=== PATIENT | male | born 1995 | race Caucasian/White ===

== ENCOUNTER 2019-04-03 08:28 | Emergency (ER) | payer BC ==
[2019-04-03 08:36] VITALS: BP 153/86
--- NOTE | 2019-04-03 09:11 | EDM.PDOC ---
ED HPI GENERAL MEDICAL PROBLEM - General Chief Complaint: ENT Problem Stated Complaint: NOSE BLEED/COUGHING BLOOD Time Seen by Provider: 04/03/19 08:40 Source of Information: Reports: Patient History Limitations: Reports: No Limitations - History of Present Illness INITIAL COMMENTS - FREE TEXT/NARRATIVE: The patient presents with a nose bleed. This started this morning at work. He denies any trauma. It was coming out of both nostrils. He says he does have a history of nosebleeds. This one caused him to cough up some blood after. That has never happened before. He has a complex heart history. 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 He also has a pacemaker defibrillator. He had that replaced a few times. He is on aspirin but he has been on other blood thinners before. 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 He also had a little chest pain when the nosebleed happened. The bleeding has stopped now. Onset: Sudden Duration: Hour(s): Severity: Moderate Improves with: Reports: None Worsens with: Reports: None Associated Symptoms: Reports: Chest Pain. Denies: Cough, Fever/Chills, Headaches, Nausea/Vomiting, Shortness of Breath - Related Data Allergies Allergy/AdvReac Type Severity Reaction Status Date / Time vancomycin Allergy Redness Verified 11/29/15 12:15 acetaminophen [From Tylenol] AdvReac Other Verified 04/03/19 08:37 Home Meds: Home Meds Carvedilol 6.25 mg PO BID 12/30/13 [History] Carvedilol [Coreg] 25 mg PO BID 12/30/13 [History] Digoxin 0.125 mg PO DAILY 12/30/13 [History] Eplerenone [Inspra] 25 mg PO DAILY 12/30/13 [History] Magnesium Oxide [Magnesium] 400 mg PO BID 12/30/13 [History] Amantadine [Symmetrel] 100 mg PO DAILY 11/29/15 [History] Aspirin 81 mg PO ASDIRECTED 11/29/15 [History] Sotalol [Betapace] 80 mg PO DAILY 11/29/15 [History] Carvedilol [Coreg] 6.25 mg PO BID 04/03/19 [History] Diclofenac Sodium [Voltaren] 50 mg PO TID PRN 04/03/19 [History] Past Medical History HEENT History: Reports: Impaired Vision Other HEENT History: wears glasses Cardiovascular History: Reports: Arrhythmia, Heart Valve Replacement, Hypertension, Prior Cardiac Arrest, Other (See Below) Other Cardiovascular History: Has had 1 pacemaker change and 2 defibulator changes-. 3 open heart surgeries., 3 cardiac caths. Had a myocardial infarction at age 15. Unclear etiology although suspicious that he had a ventricular septal defect. heart is located on right side. 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 Other Immunologic History: pulmonary valve - Past Surgical History Cardiovascular Surgical History: Reports: AICD, Pacer, Valve Replacement Social & Family History - Caffeine Use Caffeine Use: Reports: Coffee, Energy Drinks, Tea - Recreational Drug Use Recreational Drug Use: No - Living Situation & Occupation Living situation: Reports: Single, with Family Occupation: Employed ED ROS ENT - Review of Systems Review Of Systems: See Below Constitutional: Reports: No Symptoms HEENT: Reports: Nosebleed Respiratory: Reports: No Symptoms Cardiovascular: Reports: Chest Pain Endocrine: Reports: No Symptoms GI/Abdominal: Reports: No Symptoms : Reports: No Symptoms Musculoskeletal: Reports: No Symptoms ED EXAM, ENT - Physical Exam Exam: See Below Exam Limited By: No Limitations General Appearance: Alert, No Apparent Distress Ears: Normal External Exam Nose: Dried Blood Mouth/Throat: Normal Inspection Head: Atraumatic, Normocephalic Neck: Normal Inspection, Supple, Non-Tender Respiratory/Chest: No Respiratory Distress, Lungs Clear, Normal Breath Sounds Cardiovascular: Regular Rate, Rhythm, No Edema, No Murmur GI/Abdominal: Soft, Non-Tender, No Organomegaly, No Mass Back: Normal Inspection Extremities: Normal Inspection EKG INTERPRETATION EKG Date: 04/03/19 Time: 09:06 Rhythm: Other (atrial-sensed ventricular-paced rhythm) Course - Vital Signs Last Recorded V/S: Last Vital Signs Temp 96.9 F 04/03/19 08:33 Pulse 66 04/03/19 08:33 Resp 15 04/03/19 08:33 BP 153/86 H 04/03/19 08:33 Pulse Ox 97 04/03/19 08:33 - Orders/Labs/Meds Orders: Active Orders 24 hr Category Date Time Status Cardiac Monitoring [RC] . DIRECTED Care 04/03/19 08:57 Active EKG Documentation Completion [RC] STAT Care 04/03/19 08:57 Active Labs: Laboratory Tests 04/03/19 04/03/19 04/03/19 Range/Units 09:13 09:13 09:13 WBC 6.50 (4.23-9.07) K/mm3 RBC 5.38 (4.63-6.08) M/mm3 Hgb 16.7 (13.7-17.5) gm/L Hct 48.1 (40.1-51.0) % MCV 89.4 (79.0-92.2) fl MCH 31.0 (25.7-32.2) pg MCHC 34.7 (32.2-35.5) g/dl RDW Std Deviation 42.5 (35.1-43.9) fL Plt Count 180 (163-337) K/mm3 MPV 10.6 (9.4-12.3) fl Neut % (Auto) 65.1 (34.0-67.9) % Lymph % (Auto) 21.4 L (21.8-53.1) % [place] % (Auto) 10.9 (5.3-12.2) % Eos % (Auto) 2.2 (0.8-7.0) Baso % (Auto) 0.2 (0.1-1.2) % Neut # (Auto) 4.24 (1.78-5.38) K/mm3 Lymph # (Auto) 1.39 (1.32-3.57) K/mm3 [place] # (Auto) 0.71 (0.30-0.82) K/mm3 Eos # (Auto) 0.14 (0.04-0.54) K/mm3 Baso # (Auto) 0.01 (0.01-0.08) K/mm3 PT 11.2 (9.7-12.0) SECONDS INR 1.03 APTT 29 (22-31) SECONDS Sodium 136 (136-145) mEq/L Potassium 4.3 (3.5-5.1) mEq/L Chloride 101 (98-107) mEq/L Carbon Dioxide 24 (21-32) mEq/L Anion Gap 15.3 H (5-15) BUN 21 H (7-18) mg/dL Creatinine 0.8 (0.7-1.3) mg/dL Est Cr Clr Drug Dosing 173.11 mL/min Estimated GFR (MDRD) > 60 (>60) mL/min BUN/Creatinine Ratio 26.3 H (14-18) Glucose 105 (74-106) mg/dL Calcium 9.0 (8.5-10.1) mg/dL Total Bilirubin 1.8 H (0.2-1.0) mg/dL AST 29 (15-37) U/L ALT 45 (16-63) U/L Alkaline Phosphatase 68 (46-116) U/L Troponin I 0.026 (0.00-0.056) ng/mL Total Protein 7.9 (6.4-8.2) g/dl Albumin 4.3 (3.4-5.0) g/dl Globulin 3.6 gm/dL Albumin/Globulin Ratio 1.2 (1-2) - Re-Assessments/Exams Free Text/Narrative Re-Assessment/Exam: 04/03/19 09:14 I ordered an EKG, CXR and labs. 04/03/19 10:53 His EKG shows a paced rhythm. His CXR shows nothing acute. His CBC and CMP look good. His tropnin PT and PTT look good. I did use silver nitrate to cauterize some bleeding to the septum of each nostril. Departure - Departure Time of Disposition: 10:55 Disposition: Home, Self-Care 01 Condition: Good Clinical Impression: Epistaxis - Discharge Information *PRESCRIPTION DRUG MONITORING PROGRAM REVIEWED*: No *COPY OF PRESCRIPTION DRUG MONITORING REPORT IN PATIENT JENNIFER: No Referrals: Mariano Oro MD [Primary Care Provider] - Forms: ED Department Discharge Additional Instructions: Put some petroleum jelly or antibiotic ointment in each nostril a couple times per day to keep things moist. Please return if you are worse. - My Orders Last 24 Hours: My Active Orders 04/03/19 08:57 Cardiac Monitoring [RC] . DIRECTED EKG Documentation Completion [RC] STAT - Assessment/Plan Last 24 Hours: My Active Orders 04/03/19 08:57 Cardiac Monitoring [RC] . DIRECTED EKG Documentation Completion [RC] STAT
--- NOTE | 2019-04-03 09:35 | CR ---
Chest: Two views of the chest are obtained. Comparison: Prior chest x-ray of 12/30/13. Stable appearing right-sided cardiac apex is noted. Left-sided aortic arch is noted. Findings are compatible with stable appearing congenital heart disease. Epicardial wires are seen. Lungs are clear with no acute parenchymal change. Sternotomy wires are noted. Bony structures appear within normal limits for the patient's age. Impression: 1. Stable chest x-ray from previous exam. 2. Nothing acute is identified. Diagnostic code #2
== END 2019-04-03 11:03 | disposition home or self-care (01) ==
LOC: JD.ED 08:28
DX: R04.0 Epistaxis (principal); I10 Essential (primary) hypertension; I25.2 Old myocardial infarction; Z95.2 Presence of prosthetic heart valve; Z88.6 Allergy status to analgesic agent; Z88.1 Allergy status to other antibiotic agents; Z79.82 Long term (current) use of aspirin; Z79.899 Other long term (current) drug therapy
CPT/HCPCS: 30901; 36415; 71046; 71046-26; 80053; 84484; 85025; 85610; 85730; 93005; 99284-25

== ENCOUNTER 2020-03-25 12:15 | Emergency (ER) | payer SELFPAY ==
--- NOTE | 2020-03-25 13:50 | EDM.PDOC ---
ED HPI GENERAL MEDICAL PROBLEM - General Chief Complaint: Neurological Problem Stated Complaint: LOSS OF FEELING IN RT LEG Time Seen by Provider: 03/25/20 12:34 Source of Information: Reports: Patient History Limitations: Reports: No Limitations - History of Present Illness INITIAL COMMENTS - FREE TEXT/NARRATIVE: Patient is a 24-year-old male who presents to the emergency department with complaints of numbness and areas of pain with palpation to the medial aspect of his right lower extremity from the level of the knee to the ankle. He states he awoke with the symptoms this morning. He does have a history of nerve damage in his right leg after dislodgment of an femoral angiocatheter at the age of 16. He has significant cardiac history due to congenital heart defects with an CT at the age of 15, 3 open heart surgeries, 3 pacemakers, and 3 cardiac caths. He states that he has had significant problems with the nerves in his right leg since that time was diagnosed with reflex sympathetic dystrophy of the extremity. He did have symptoms similar to this up until 2 years ago, however states since 2 years ago he has not had any numbness in the extremity. He has used nerve medications such as gabapentin and Lyrica in the past, however states that they caused adverse effects for him so he had stopped the medications. He denies any chest pain or shortness of breath. He has not had any redness or swelling to the lower extremity, however states that is painful behind his knee. Right Lower Leg Pain Score (Numeric/FACES): 7 - Related Data Allergies Allergy/AdvReac Type Severity Reaction Status Date / Time vancomycin Allergy Severe Redness Verified 03/25/20 12:31 acetaminophen [From Tylenol] AdvReac Severe Other Verified 03/25/20 12:31 Home Meds: Home Meds Digoxin 0.125 mcg PO DAILY 12/30/13 [History] Eplerenone [Inspra] 25 mg PO DAILY 12/30/13 [History] Magnesium Oxide [Magnesium] 400 mg PO BID 12/30/13 [History] carvediloL [Coreg] 25 mg PO BID 12/30/13 [History] Aspirin 81 mg PO ASDIRECTED 11/29/15 [History] Sotalol [Betapace] 80 mg PO DAILY 11/29/15 [History] carvediloL [Coreg] 6.25 mg PO BID 04/03/19 [History] Past Medical History HEENT History: Reports: Impaired Vision Other HEENT History: wears glasses Cardiovascular History: Reports: Arrhythmia, Heart Valve Replacement, Hypertension, CT, Prior Cardiac Arrest, Other (See Below) Other Cardiovascular History: Has had 1 pacemaker change and 2 defibulator changes-. 3 open heart surgeries., 3 cardiac caths. Had a myocardial infarction at age 15. Unclear etiology although suspicious that he had a ventricular septal defect. heart is located on right side. 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 ED EXAM, NEURO - Physical Exam Exam: See Below Exam Limited By: No Limitations General Appearance: Alert, WD/WN, No Apparent Distress Respiratory/Chest: No Respiratory Distress, Lungs Clear, Normal Breath Sounds, No Accessory Muscle Use, Chest Non-Tender Cardiovascular: Normal Peripheral Pulses, Regular Rate, Rhythm, No Edema, No Gallop, No JVD, No Murmur, No Rub Neurological: Alert, Normal Mood/Affect, Normal Dorsiflexion, CN II-XII Intact, Normal Plantar Flexion, Normal Gait, Normal Reflexes, Oriented x 3, Abnormal Sensation (numbness to medial aspect of RLE from level of knee to ankle. Pain to light tough directly proximal to medial ankle.). No: Abnormal Motor Extremities: Normal Inspection, Normal Range of Motion, Non-Tender, No Pedal Edema, Normal Capillary Refill Psychiatric: Normal Affect, Normal Mood Skin Exam: Warm, Dry, Intact, Normal Color, No Rash Course - Vital Signs Last Recorded V/S: Last Vital Signs Temp 98.3 F 03/25/20 12:38 Pulse 60 03/25/20 12:38 Resp 20 03/25/20 12:38 BP 137/76 03/25/20 12:38 Pulse Ox 97 03/25/20 12:38 - Orders/Labs/Meds Labs: Laboratory Tests 03/25/20 03/25/20 03/25/20 Range/Units 13:00 13:00 13:00 WBC 4.97 (4.23-9.07) K/mm3 RBC 5.11 (4.63-6.08) M/mm3 Hgb 16.0 (13.7-17.5) gm/dl Hct 47.2 (40.1-51.0) % MCV 92.4 H D (79.0-92.2) fl MCH 31.3 (25.7-32.2) pg MCHC 33.9 (32.2-35.5) g/dl RDW Std Deviation 45.0 H (35.1-43.9) fL Plt Count 180 (163-337) K/mm3 MPV 10.4 (9.4-12.3) fl Neut % (Auto) 56.5 (34.0-67.9) % Lymph % (Auto) 30.8 (21.8-53.1) % [place] % (Auto) 10.3 (5.3-12.2) % Eos % (Auto) 1.4 (0.8-7.0) Baso % (Auto) 0.8 (0.1-1.2) % Neut # (Auto) 2.81 (1.78-5.38) K/mm3 Lymph # (Auto) 1.53 (1.32-3.57) K/mm3 [place] # (Auto) 0.51 (0.30-0.82) K/mm3 Eos # (Auto) 0.07 (0.04-0.54) K/mm3 Baso # (Auto) 0.04 (0.01-0.08) K/mm3 Sodium 137 (136-145) mEq/L Potassium 4.0 (3.5-5.1) mEq/L Chloride 104 (98-107) mEq/L Carbon Dioxide 24 (21-32) mEq/L Anion Gap 13.0 (5-15) BUN 9 (7-18) mg/dL Creatinine 0.7 (0.7-1.3) mg/dL Est Cr Clr Drug Dosing 196.16 mL/min Estimated GFR (MDRD) > 60 (>60) mL/min BUN/Creatinine Ratio 12.9 L (14-18) Glucose 88 (74-106) mg/dL Calcium 9.0 (8.5-10.1) mg/dL Total Bilirubin 1.6 H (0.2-1.0) mg/dL AST 15 (15-37) U/L ALT 23 (16-63) U/L Alkaline Phosphatase 50 (46-116) U/L Troponin I < 0.017 (0.00-0.056) ng/mL C-Reactive Protein 0.3 (<1.0) mg/dL Total Protein 7.5 (6.4-8.2) g/dl Albumin 4.2 (3.4-5.0) g/dl Globulin 3.3 gm/dL Albumin/Globulin Ratio 1.3 (1-2) - Re-Assessments/Exams Free Text/Narrative Re-Assessment/Exam: Patient is a 24 year old male who presents to the ER with c/o numbness and paresthesia to the medial aspect of his right lower extremity along the distribution of the saphenous nerve. He has a long history of nerve damage in his rt leg due to a displaced angiocatheter as a teenager. He had symptoms s imilar to this up until 2 years ago, but has been doing well since then up until the symptoms returned today. He has had no known injury to the extremity. He has had no cardiac s/s Manny chest pain or SOB. He has had no redness or edema in the extremity but does have some pain to the popliteal fossa upon palpation. His symptoms are strictly sensory and he has no motor impairment of the extremity. He is able to ambulate without difficulty. My suspicion is that his symptoms are related to his chronic nerve damage; however, I have ordered a CBC, CMP, CRP, troponic, and VL duplex to the RLE to r/o DVT and electrolyte abnormalities. 03/25/20 14:14 Hematology was grossly unremarkable. VL duplex of the RLE was negative for DVT. Since pt has tried gabapentin and lyrica in the past and had adverse effects, we will not start him on a medication today. Recommend that he monitor sypmtoms and f/u with his PCP at next available visit. Return to ER for worsening symptoms. Discharge instructions as documented. Departure - Departure Time of Disposition: 14:16 Disposition: Home, Self-Care 01 Condition: Good Clinical Impression: Neuropathy, leg Qualifiers: Laterality: right Qualified Code(s): G57.91 - Unspecified mononeuropathy of right lower limb - Discharge Information *PRESCRIPTION DRUG MONITORING PROGRAM REVIEWED*: No *COPY OF PRESCRIPTION DRUG MONITORING REPORT IN PATIENT JENNIFER: No Referrals: Mariano Oro MD [Primary Care Provider] - Forms: ED Department Discharge, ED Return to Work/School Form Additional Instructions: You were seen in the emergency department today for numbness and paresthesia to the medial aspect of your right lower leg. Blood work and an u/s of the lower extremity was completed and found to be normal. There is no evidence of blood clot within your leg. You are likely experiencing neuropathy of the saphenous n erve. Recommend that you continue to monitor symptoms and follow-up with Dr. Bledsoe at this next available appointment. If you should experience any new or worsening symptoms of concern, please do not hesitate to return to the emergency department. Sepsis Event Note (ED) - Evaluation Sepsis Screening Result: No Definite Risk - Focused Exam Vital Signs: Vital Signs Temp Pulse Resp BP Pulse Ox 03/25/20 12:38 98.3 F 60 20 137/76 97
--- NOTE | 2020-03-25 14:02 | US ---
Right lower extremity deep venous ultrasound: Duplex and color Doppler evaluation was obtained of the right common femoral, superficial femoral, popliteal, posterior tibial and peroneal veins. Left common femoral vein was also evaluated. Findings: Normal augmentation, compression and phasic flow is seen. Impression: 1. No evidence of deep venous thrombosis within the right lower extremity or left common femoral vein. Diagnostic code #1 This report was dictated in MDT
[2020-03-25 14:31] VITALS: BP 137/82; PULSE 61
== END 2020-03-25 14:52 | disposition home or self-care (01) ==
LOC: JD.ED 12:15
DX: G57.91 Unspecified mononeuropathy of right lower limb (principal); I10 Essential (primary) hypertension; I25.2 Old myocardial infarction; F17.210 Nicotine dependence, cigarettes, uncomplicated; Z88.6 Allergy status to analgesic agent; Z95.0 Presence of cardiac pacemaker; Z79.82 Long term (current) use of aspirin; Z88.1 Allergy status to other antibiotic agents; Z79.899 Other long term (current) drug therapy
CPT/HCPCS: 36415; 80053; 84484; 85025; 86140; 93971-26-RT; 93971-RT; 99282; 99284-25

== ENCOUNTER 2021-03-11 14:52 | Emergency (ER) | payer BC ==
--- NOTE | 2021-03-11 15:40 | PCM.PREANE ---
Preanesthetic Assessment - Procedure Proposed Procedure: Laparoscopic appedectomy - Anesthesia/Transfusion/Family Hx Anesthesia History: Prior Anesthesia Without Reaction Family History of Anesthesia Reaction: No - Review of Systems General: No Symptoms Pulmonary: No Symptoms Cardiovascular: No Symptoms, Other (dextrocardia, s/p PVR, AICD) Gastrointestinal: No Symptoms Neurological: No Symptoms Other: Reports: None - Physical Assessment NPO Status Date: 03/11/21 NPO Status Time: 11:00 Vital Signs: Last Vital Signs Temp 97.2 F 03/11/21 15:05 Pulse 60 03/11/21 15:05 Resp 12 03/11/21 15:05 BP 144/76 H 03/11/21 15:05 Pulse Ox 99 03/11/21 15:05 Height: 1.91 m Weight: 116.12 kg ASA Class: 3E Mental Status: Alert & Oriented x3 Airway Class: Mallampati = 2 Dentition: Reports: Normal Dentition Thyro-Mental Finger Breadths: 3 Mouth Opening Finger Breadths: 3 ROM/Head Extension: Full Lungs: Clear to Auscultation, Normal Respiratory Effort Cardiovascular: Murmurs, Other (biventricular paced) - Allergies Allergies/Adverse Reactions: Allergies Allergy/AdvReac Type Severity Reaction Status Date / Time vancomycin Allergy Severe Redness Verified 03/11/21 15:06 acetaminophen [From Tylenol] AdvReac Severe Hypertensio Verified 03/11/21 15:05 n - Anesthesia Plan Beta Ramila: Other (Sotalol) Med Last Dose Date: 03/11/21 Med Last Dose Time: 05:45 - Acknowledgements Anesthesia Type Planned: General Anesthesia Pt an Appropriate Candidate for the Planned Anesthesia: Yes Alternatives and Risks of Anesthesia Discussed w Pt/Guardian: Yes Pt/Guardian Understands and Agrees with Anesthesia Plan: No Additional Comments: Due to the patient's cardiac condition, he (and his family) decide to get transferred to in [place] for advanced cardiac monitoring. PreAnesthesia Questionnaire HEENT History: Reports: Impaired Vision Other HEENT History: wears glasses Cardiovascular History: Reports: Arrhythmia, Heart Valve Replacement, Hypertension, [place], Prior Cardiac Arrest, Other (See Below) Other Cardiovascular History: Has had 1 pacemaker change and 2 defibulator changes-. 3 open heart surgeries., 3 cardiac caths. Had a myocardial infarction at age 15. Unclear etiology although suspicious that he had a ventricular septal defect. heart is located on right side. 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 - Infectious Disease History Infectious Disease History: Reports: Chicken Pox, Novel Coronavirus - Past Surgical History HEENT Surgical History: Reports: Tonsillectomy (2009) Cardiovascular Surgical History: Reports: AICD (2004), Pacer (biventricular 2004, then 2005), Valve Replacement (2004) - SUBSTANCE USE Tobacco Use Within Last Twelve Months: Snuff/Dip Recreational Drug Use History: No - HOME MEDS Home Medications: Home Meds Digoxin 0.125 mcg PO DAILY 12/30/13 [History] Eplerenone [Inspra] 25 mg PO DAILY 12/30/13 [History] Magnesium Oxide [Magnesium] 400 mg PO BID 12/30/13 [History] carvediloL [Coreg] 25 mg PO BID 12/30/13 [History] Aspirin 81 mg PO ASDIRECTED 11/29/15 [History] Sotalol [Betapace] 80 mg PO BID 11/29/15 [History] carvediloL [Coreg] 6.25 mg PO BID 04/03/19 [History]
[2021-03-11] MEDS ORDERED: fentaNYL 250 MCG/5 ML SDV ONE (15:59)
[2021-03-11] MEDS ORDERED: Midazolam 1 MG/ML 2 ML SDV ONE (15:59)
[2021-03-11] MEDS ORDERED: Lidocaine 1% 2 ML ONE (16:01)
[2021-03-11] MEDS ORDERED: Lidocaine 1% 6 ML ONE (16:01)
[2021-03-11] MEDS ORDERED: Bupivacaine 0.5%/EPINEPHrine 1:200,000 50 ML MDV ONE (16:03)
--- NOTE | 2021-03-11 17:03 | PCM.CONS ---
H&P History of Present Illness - General Date of Service: 03/11/21 Admit Problem/Dx: abdominal pain Source of Information: Patient History Limitations: Reports: No Limitations - History of Present Illness Initial Comments - Free Text/Narative: Mr. Xiong is a 25 yo man sent from the walk-in clinic at [facility] to the emergency room for possible acute appendicitis. He developed new right lower quadrant pain 24 hours ago. The pain has been steady and moderately severe. He has no associated symptoms like nausea or vomiting. He has never had pain like this before, and the pain is focal at the right lower quadrant. Pain is not bad when he lies still but is worse with movement. At [facility], lab work included a CBC which showed a normal WBC. A CT scan was obtained which showed appendicolith within the proximal appendix without signs of acute appendicitis. 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 He has a history of ventricular arrhythmia and has a pacer/defibrillator in place. He has had multiple cardiac operations including valvuloplasty. He has been on ECMO. Currently he only takes aspirin as far as antiplatelet or anticoagulant therapy. He and family are very concerned about his tolerance for surgical operations with his heart history; in the past, cardiology was on standby during routine tonsillectomy. He takes digoxin and had a reportedly low ventricular ejection fraction on at least one echocardiogram. Right Abdomen Pain Score (Numeric/FACES): 6 - Related Data Allergies/Adverse Reactions: Allergies Allergy/AdvReac Type Severity Reaction Status Date / Time vancomycin Allergy Severe Redness Verified 03/11/21 15:06 acetaminophen [From Tylenol] AdvReac Severe Hypertensio Verified 03/11/21 15:05 n Home Medications: Home Meds Digoxin 0.125 mcg PO DAILY 12/30/13 [History] Eplerenone [Inspra] 25 mg PO DAILY 12/30/13 [History] Magnesium Oxide [Magnesium] 400 mg PO BID 12/30/13 [History] carvediloL [Coreg] 25 mg PO BID 12/30/13 [History] Aspirin 81 mg PO ASDIRECTED 11/29/15 [History] Sotalol [Betapace] 80 mg PO BID 11/29/15 [History] carvediloL [Coreg] 6.25 mg PO BID 08/29/19 [History] Past Medical History HEENT History: Reports: Impaired Vision Other HEENT History: wears glasses Cardiovascular History: Reports: Arrhythmia, Heart Valve Replacement, Hypertension, [place], Prior Cardiac Arrest, Other (See Below) Other Cardiovascular History: Has had 1 pacemaker change and 2 defibulator changes-. 3 open heart surgeries., 3 cardiac caths. Had a myocardial infarction at age 15. Unclear etiology although suspicious that he had a ventricular septal defect. heart is located on right side. 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 - Infectious Disease History Infectious Disease History: Reports: Chicken Pox, Novel Coronavirus - Past Surgical History HEENT Surgical History: Reports: Tonsillectomy (2009) Cardiovascular Surgical History: Reports: AICD (2004), Pacer (biventricular 2004, then 2005), Valve Replacement (2004) Social & Family History - Caffeine Use Caffeine Use: Reports: Coffee, Soda - Recreational Drug Use Recreational Drug Use: No - Living Situation & Occupation Living situation: Reports: Single, with Family Occupation: Employed H&P Review of Systems - Review of Systems: Review Of Systems: See Below General: Reports: No Symptoms HEENT: Reports: No Symptoms Pulmonary: Reports: No Symptoms Cardiovascular: Reports: Blood Pressure Problem Gastrointestinal: Reports: Abdominal Pain Genitourinary: Reports: No Symptoms Musculoskeletal: Reports: No Symptoms Skin: Reports: No Symptoms Psychiatric: Reports: No Symptoms Neurological: Reports: No Symptoms Hematologic/Lymphatic: Reports: No Symptoms Immunologic: Reports: No Symptoms Exam - Exam Exam: See Below - Vital Signs Vital Signs: Last Vital Signs Temp 36.2 C 03/11/21 15:05 Pulse 60 03/11/21 15:05 Resp 12 03/11/21 15:05 BP 144/76 H 03/11/21 15:05 Pulse Ox 99 03/11/21 15:05 Weight: 116.12 kg - Exam General: Alert, Oriented, Cooperative HEENT: Conjunctiva Clear Neck: Trachea Midline Lungs: Clear to Auscultation, Normal Respiratory Effort Cardiovascular: Other (bradycardic, irregular rhythm, 3/6 systolic murmur at left 5th intercostal space) GI/Abdominal Exam: Soft, Other (McBurney point tenderness, no palpable mass or guarding) Extremities: Normal Inspection Skin: Warm, Dry Neuro Extensive - Mental Status: Alert, Oriented x3, Normal Mood/Affect Sepsis Event Note - Evaluation Sepsis Screening Result: No Definite Risk - Focused Exam Vital Signs: Vital Signs Temp Pulse Resp BP Pulse Ox 03/11/21 15:05 36.2 C 60 12 144/76 H 99 Consult PN Assessment/Plan Procedures: Procedures ASSAY OF BLOOD/URIC ACID (02/27/19) ASSAY OF MAGNESIUM (12/30/13) ASSAY OF TROPONIN QUANT (03/25/20) C-REACTIVE PROTEIN (03/25/20) CHEST X-RAY 2VW FRONTAL&LATL (12/30/13) COMPLETE CBC W/AUTO DIFF WBC (03/25/20) COMPREHEN METABOLIC PANEL (03/25/20) CONTROL OF NOSEBLEED (04/03/19) ECG MONIT/REPRT UP TO 48 HRS (04/10/19) ECG MONIT/REPRT UP TO 48 HRS (04/10/19) ELECTROCARDIOGRAM TRACING (04/03/19) EMERGENCY DEPT VISIT (03/25/20) EMERGENCY DEPT VISIT (02/27/19) EMERGENCY DEPT VISIT (12/30/13) EXTREMITY STUDY (03/25/20) POLYSOM 6/> YRS 4/> SHARLENE (07/21/20) PROTHROMBIN TIME (04/03/19) RBC SED RATE AUTOMATED (02/27/19) ROUTINE VENIPUNCTURE (03/25/20) THROMBOPLASTIN TIME PARTIAL (04/03/19) X-RAY EXAM CHEST 2 VIEWS (04/03/19) X-RAY EXAM OF FOOT (02/27/19) Problem List Initiated/Reviewed/Updated: Yes Plan: History and physical exam are suggestive of acute appendicitis. I reviewed the CT imaging, and agree that there is radiopaque material in the proximal lumen of the appendix without apparent inflammation. I would think in an otherwise healthy patient with this presentation that the benefit of appendectomy would outweigh the risks. The patient is currently stable, in no distress with normal vital signs. However, patient and family are concerned given his cardiac issues and wish to have appendectomy performed at a center with subspecialty care like cardiology available were it to be needed. I discussed the patient with the on-call general surgeon, hospitalist and emergency medicine doctor at [facility] in [place]. The patient and his parents will drive themselves to the ER in [place] where the EM physician is expecting them, and general surgery will be notified.
[2021-03-11 17:05] VITALS: BP 125/59; PULSE 62
== END 2021-03-11 17:05 ==
LOC: JD.ED 14:52
DX: R10.31 Right lower quadrant pain (principal); I10 Essential (primary) hypertension; I25.2 Old myocardial infarction; Z88.6 Allergy status to analgesic agent; Z88.1 Allergy status to other antibiotic agents; Z79.82 Long term (current) use of aspirin; Z79.899 Other long term (current) drug therapy; Z86.16 Personal history of COVID-19
CPT/HCPCS: 99283; J2250; J3010; J3490

== ENCOUNTER 2021-03-15 13:26 | Emergency (ER) | payer BC ==
[2021-03-15 13:38] VITALS: BP 141/67; PULSE 65
[2021-03-15] MEDS: Sodium Chloride 0.9% 10 ML Syringe FLUSH PRN ×2 (13:48→14:57)
--- NOTE | 2021-03-15 14:19 | EDM.PDOC ---
ED HPI GENERAL MEDICAL PROBLEM - General Chief Complaint: Abdominal Pain Stated Complaint: LOWER RT ABDOMINAL PAIN Time Seen by Provider: 03/15/21 13:39 Source of Information: Reports: Patient, RN Notes Reviewed History Limitations: Reports: No Limitations - History of Present Illness INITIAL COMMENTS - FREE TEXT/NARRATIVE: Patient is a 25-year-old male presenting to the emergency department complains of right lower quadrant abdominal pain. He was diagnosed with acute appendicitis on March 11. Appendix was unable to be removed in [place] or [place] given his significant cardiac history. 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 He spent 2 days in the hospital in [place]. Received IV antibiotics. He was discharged home on Mar. Plan is to have his appendix removed in [place], however a date has not been sent for this. Patient reports that he has spoke with rotary operator, Dr. Guo. He reports that when he was discharged, he did still have some mild right lower quadrant pain, however today it has worsened.States the pain is not as bad as it was when he was diagnosed however. He has had no fever, chills, nausea, vomiting, or diarrhea. He has 1 day of Augmentin left in his treatment course. Right Lower Abdomen Pain Score (Numeric/FACES): 4 - Related Data Allergies Allergy/AdvReac Type Severity Reaction Status Date / Time vancomycin Allergy Severe Redness Verified 03/15/21 13:38 acetaminophen [From Tylenol] AdvReac Severe Hypertensio Verified 03/15/21 13:38 n Home Meds: Home Meds Digoxin 0.125 mcg PO DAILY 12/30/13 [History] Eplerenone [Inspra] 25 mg PO DAILY 12/30/13 [History] Magnesium Oxide [Magnesium] 400 mg PO BID 12/30/13 [History] carvediloL [Coreg] 25 mg PO BID 12/30/13 [History] Aspirin 81 mg PO ASDIRECTED 11/29/15 [History] Sotalol [Betapace] 80 mg PO BID 11/29/15 [History] carvediloL [Coreg] 6.25 mg PO BID 04/03/19 [History] Past Medical History HEENT History: Reports: Impaired Vision Other HEENT History: wears glasses Cardiovascular History: Reports: Arrhythmia, Heart Valve Replacement, Hypertension, [place], Prior Cardiac Arrest, Other (See Below) Other Cardiovascular History: Has had 1 pacemaker change and 2 defibulator changes-. 3 open heart surgeries., 3 cardiac caths. Had a myocardial infarction at age 15. Unclear etiology although suspicious that he had a ventricular septal defect. heart is located on right side. 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 - Infectious Disease History Infectious Disease History: Reports: Chicken Pox, Novel Coronavirus - Past Surgical History HEENT Surgical History: Reports: Tonsillectomy Cardiovascular Surgical History: Reports: AICD, Pacer, Valve Replacement Social & Family History - Tobacco Use Tobacco Use Status *Q: Current Every Day Tobacco User Years of Tobacco use: 2 Packs/Tins Daily: 0.5 - Caffeine Use Caffeine Use: Reports: Coffee, Soda - Recreational Drug Use Recreational Drug Use: No - Living Situation & Occupation Living situation: Reports: Single, with Family Occupation: Employed ED ROS GENERAL - Review of Systems Review Of Systems: Comprehensive ROS is negative, except as noted in HPI. ED EXAM, GI/ABD - Physical Exam Exam: See Below Exam Limited By: No Limitations General Appearance: Alert, WD/WN, No Apparent Distress Respiratory/Chest: No Respiratory Distress, Lungs Clear, Normal Breath Sounds, No Accessory Muscle Use, Chest Non-Tender Cardiovascular: Normal Peripheral Pulses, Regular Rate, Rhythm, No Edema, No Gallop, No JVD, No Murmur, No Rub GI/Abdominal Exam: Normal Bowel Sounds, Soft, No Organomegaly, No Distention, No Abnormal Bruit, No Mass, Pelvis Stable, Rebound, Tender (RLQ). No: Guarding, Rigid Neurological: Alert, Oriented, CN II-XII Intact, Normal Cognition, Normal Gait, Normal Reflexes, No Motor/Sensory Deficits Psychiatric: Normal Affect, Normal Mood Skin Exam: Warm, Dry, Intact, Normal Color, No Rash Course - Vital Signs Last Recorded V/S: Last Vital Signs Temp 98 F 03/15/21 13:36 Pulse 65 03/15/21 13:36 Resp 16 03/15/21 13:36 BP 141/67 H 03/15/21 13:36 Pulse Ox 95 03/15/21 13:36 - Orders/Labs/Meds Orders: Active Orders 24 hr Category Date Time Status Peripheral IV Insertion Adult [OM.PC] Stat Oth 03/15/21 13:40 Ordered Labs: Laboratory Tests 03/15/21 03/15/21 Range/Units 13:47 13:47 WBC 5.09 (4.23-9.07) K/mm3 RBC 4.89 (4.63-6.08) M/mm3 Hgb 15.2 (13.7-17.5) gm/dl Hct 45.3 (40.1-51.0) % MCV 92.6 H (79.0-92.2) fl MCH 31.1 (25.7-32.2) pg MCHC 33.6 (32.2-35.5) g/dl RDW Std Deviation 44.0 H (35.1-43.9) fL Plt Count 163 (163-337) K/mm3 MPV 10.2 (9.4-12.3) fl Neut % (Auto) 56.0 (34.0-67.9) % Lymph % (Auto) 29.9 (21.8-53.1) % [place] % (Auto) 10.6 (5.3-12.2) % Eos % (Auto) 2.9 (0.8-7.0) Baso % (Auto) 0.4 (0.1-1.2) % Neut # (Auto) 2.85 (1.78-5.38) K/mm3 Lymph # (Auto) 1.52 (1.32-3.57) K/mm3 [place] # (Auto) 0.54 (0.30-0.82) K/mm3 Eos # (Auto) 0.15 (0.04-0.54) K/mm3 Baso # (Auto) 0.02 (0.01-0.08) K/mm3 Sodium 143 (136-145) mEq/L Potassium 4.3 (3.5-5.1) mEq/L Chloride 105 (98-107) mEq/L Carbon Dioxide 28 (21-32) mEq/L Anion Gap 14.3 (5-15) BUN 18 (7-18) mg/dL Creatinine 0.8 (0.7-1.3) mg/dL Est Cr Clr Drug Dosing 170.17 mL/min Estimated GFR (MDRD) > 60 (>60) mL/min BUN/Creatinine Ratio 22.5 H (14-18) Glucose 88 (70-99) mg/dL Calcium 8.9 (8.5-10.1) mg/dL Total Bilirubin 1.3 H (0.2-1.0) mg/dL AST 23 (15-37) U/L ALT 38 (16-63) U/L Alkaline Phosphatase 67 (46-116) U/L C-Reactive Protein <0.2 (<1.0) mg/dL Total Protein 7.6 (6.4-8.2) g/dl Albumin 4.3 (3.4-5.0) g/dl Globulin 3.3 gm/dL Albumin/Globulin Ratio 1.3 (1-2) Meds: Medications Discontinued Medications Generic Name Dose Route Start Last Admin Trade Name Freq PRN Reason Stop Dose Admin Diatrizoate Meglum/Diatrizoate Sod 120 ml 03/15/21 14:55 03/15/21 14:57 Diatrizoate Meglumine/Diatrizoate Sodium 37% 120 Ml Bottle PO 03/15/21 14:56 45 ml ONETIME ONE Administration Iopamidol 100 ml 03/15/21 14:55 03/15/21 14:57 Iopamidol 612 Mg/Ml 100 Ml Bottle IVPUSH 03/15/21 14:56 100 ml ONETIME ONE Administration Sodium Chloride 10 ml 03/15/21 13:40 03/15/21 14:57 Sodium Chloride 0.9% 10 Ml Syringe FLUSH 10 ml ASDIRECTED PRN Administration Keep Vein Open Sodium Chloride 10 ml 03/15/21 14:55 Sodium Chloride 0.9% 10 Ml Sdv FLUSH 03/15/21 14:56 ONETIME ONE - Re-Assessments/Exams Free Text/Narrative Re-Assessment/Exam: Patient is a 25-year-old male presenting to the emergency department with complaints of worsening his right lower quadrant abdominal pain with a previous diagnosis of appendicitis. On exam, he does have tenderness localized to the right lower quadrant. Abdomen is soft not rigid. Is not guarding. He is afebrile on arrival to ER. Currently still taking Augmentin for treatment of appendicitis. He has been in contact with cardiology at [facility] but does not currently have a date scheduled to have his appendix removed. I have ordered blood work and repeat CT scan of the abdomen pelvis. 03/15/21 15:32 Hematology is unremarkable. WBCs are normal. CRP is undetectably low. CT scan of the abdomen pelvis impression as follows: 1. Appendix appears normal in size. 2. Mild increased stool throughout the colon. 3. 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 4. Nothing acute is otherwise seen on CT of the abdomen and pelvis. Results discussed with patient. Based on this, I did not see an emergent reason for him to go to [facility] today. Recommend magnesium citrate at home to resolve constipation. He will contact his provider at [facility] to let him know of today's occurrences. I did offer to call and speak with his provider, however he did not feel this was necessary and declined. I have pushed the CT images to [facility] as well. Discharge instructions as documented. Departure - Departure Time of Disposition: 15:36 Disposition: Home, Self-Care 01 Condition: Good Clinical Impression: Abdominal pain Qualifiers: Abdominal location: right lower quadrant Qualified Code(s): R10.31 - Right lower quadrant pain - Discharge Information *PRESCRIPTION DRUG MONITORING PROGRAM REVIEWED*: No *COPY OF PRESCRIPTION DRUG MONITORING REPORT IN PATIENT JENNIFER: No Instructions: Abdominal Pain, Adult Referrals: Mariano Oro MD [Primary Care Provider] - Forms: ED Department Discharge Additional Instructions: You were seen in the emergency department for right lower abdominal pain. Workup included blood work and a CT scan of the abdomen and pelvis. Results of your workup were found to be normal. Your appendix is normal in size and does not show evidence of inflammation. There was an increased amout of stool in your colon however. Recommend using a laxative such as magensium citrate to help with this. Your CT images have been sent to [facility]. Recommend updated your provider of todays occurences and scheduled your procedure as soon as possible. Continue your Augmentin until the course is complete. Return to ER for any new or worsening symptoms of concern. Sepsis Event Note (ED) - Evaluation Sepsis Screening Result: No Definite Risk - Focused Exam Vital Signs: Vital Signs Temp Pulse Resp BP Pulse Ox 03/15/21 13:36 98 F 65 16 141/67 H 95 - My Orders Last 24 Hours: My Active Orders 03/15/21 13:40 Peripheral IV Insertion Adult [OM.PC] Stat - Assessment/Plan Last 24 Hours: My Active Orders 03/15/21 13:40 Peripheral IV Insertion Adult [OM.PC] Stat
[2021-03-15] MEDS ORDERED: Sodium Chloride 0.9% 10 ML SDV FLUSH ONE (14:55)
[2021-03-15] MEDS ORDERED: Diatrizoate Meglumine/Diatrizoate Sodium 37% 120 ML Bottle PO ONE (14:55)
[2021-03-15] MEDS ORDERED: Iopamidol 612 MG/ML 100 ML Bottle IVPUSH ONE (14:55)
--- NOTE | 2021-03-15 15:22 | CT ---
CT abdomen and pelvis Technique: Multiple axial sections were obtained from above the dome of the diaphragm inferiorly through the pubic symphysis. Intravenous and oral contrast was utilized. Reconstructed coronal and sagittal images were obtained. Delayed images were also obtained through the bladder. Comparison: No prior CT abdomen or pelvis study is available, prior chest x-ray of 04/03/19 is available. Findings: Abnormal cardiac silhouette is noted compatible with developmental anomaly. Implantable device is seen within the anterior abdomen with wires heading towards the heart. Visualized lung bases show nothing acute. Liver contains no focal abnormality. Gallbladder contains no calcified gallstones. Spleen size is normal. Adrenal glands show no nodule. Pancreas shows no discrete abnormality. Kidneys show symmetric contrast enhancement with no hydronephrosis or mass being seen. Abdominal aorta shows no aneurysm. No retroperitoneal adenopathy is seen. No pelvic mass or adenopathy is seen. Appendix is seen which is normal in size. Slight increased stool is noted throughout the colon. Incidental fat-containing umbilical hernia is noted. Delayed images show contrast within the distal right ureter and bladder. Bone window settings were reviewed. No acute osseous finding is appreciated. Impression: 1. Appendix appears normal in size. 2. Mild increased stool throughout the colon. 3. 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 4. Nothing acute is otherwise seen on CT study of the abdomen and pelvis. Diagnostic code #2
== END 2021-03-15 15:54 | disposition home or self-care (01) ==
LOC: JD.ED 13:26
DX: R10.31 Right lower quadrant pain (principal); I10 Essential (primary) hypertension; I25.2 Old myocardial infarction; Z72.0 Tobacco use; Z79.82 Long term (current) use of aspirin; Z79.899 Other long term (current) drug therapy; Z88.1 Allergy status to other antibiotic agents; Z88.6 Allergy status to analgesic agent
CPT/HCPCS: 36415; 74177; 74177-26; 80053; 85025; 86140; 99284; 99284-25; Q9963; Q9967

== ENCOUNTER 2021-08-10 10:08 | Emergency (ER) | payer BC, OTHER ==
--- NOTE | 2021-08-10 10:20 | EDM.PDOC ---
ED HPI GENERAL MEDICAL PROBLEM - General Chief Complaint: Cardiovascular Problem Stated Complaint: SILVIANO AMB Time Seen by Provider: 08/10/21 10:17 Source of Information: Reports: Patient History Limitations: Reports: No Limitations - History of Present Illness INITIAL COMMENTS - FREE TEXT/NARRATIVE: 25-year-old male presents to the ED per [facility] from his worksite. The history suggest that he has known dextrocardia and has had a pacemaker placed at age 10 which is subsequently been replaced and then subsequently replaced with a pacemaker defibrillator which is also been replaced x1. This morning in the workplace a coworker or his transport aircrewman purposely placed a large industrial magnet on his left chest. The patient felt the defibrillator discharge x2. States he managed to stay standing up did not knock him to the floor and he did not lose consciousness. Since that time he is complaining of diffuse chest discomfort and pain. ECG monitor shows paced rhythm at 71 bpm. He denies any other symptoms at this time. Onset: Today Onset Date: 08/10/21 Onset Time: 09:30 Duration: Minutes: Location: Reports: Chest Quality: Reports: Ache, Pressure Severity: Moderate Improves with: Reports: Other (Patient feels chest discomfort is slowly improving.) Worsens with: Reports: Breathing (Breathing makes the pain worse in his anterior chest wall) Context: Reports: Other (Defibrillator pacemaker discharged spontaneously after coming in contact with a industrial grade magnet this morning.). Denies: Activity, Exercise, Lifting, Sick Contact, Trauma Associated Symptoms: Reports: No Other Symptoms. 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 (see below) (None.) - Related Data Allergies Allergy/AdvReac Type Severity Reaction Status Date / Time vancomycin Allergy Severe Redness Verified 03/16/21 11:32 acetaminophen [From Tylenol] AdvReac Intermediate Hypertensio Verified 03/16/21 11:32 n Home Meds: Home Meds Digoxin 0.125 mcg PO DAILY 12/30/13 [History] Eplerenone [Inspra] 25 mg PO DAILY 12/30/13 [History] Magnesium Oxide [Magnesium] 400 mg PO BID 12/30/13 [History] carvediloL [Coreg] 25 mg PO BID 12/30/13 [History] Aspirin 81 mg PO ASDIRECTED 11/29/15 [History] Sotalol [Betapace] 80 mg PO BID 11/29/15 [History] carvediloL [Coreg] 6.25 mg PO BID 04/03/19 [History] Past Medical History HEENT History: Reports: Impaired Vision Other HEENT History: wears glasses Cardiovascular History: Reports: Arrhythmia, Heart Valve Replacement, Hypertension, [place], Prior Cardiac Arrest, Other (See Below) Other Cardiovascular History: Has had 1 pacemaker change and 2 defibulator keagan nges-. 3 open heart surgeries., 3 cardiac caths. Had a myocardial infarction at age 15. Unclear etiology although suspicious that he had a ventricular septal defect. heart is located on right side. 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 - Infectious Disease History Infectious Disease History: Reports: Chicken Pox, Novel Coronavirus - Past Surgical History HEENT Surgical History: Reports: Tonsillectomy Cardiovascular Surgical History: Reports: AICD, Pacer, Valve Replacement Social & Family History - Caffeine Use Caffeine Use: Reports: Coffee, Soda - Living Situation & Occupation Living situation: Reports: Single, with Family Occupation: Employed ED ROS GENERAL - Review of Systems Review Of Systems: See Below Constitutional: Denies: Fever, Chills, Malaise, Weakness, Fatigue, Night Sweats HEENT: Reports: Glasses Respiratory: Reports: Other (Chest wall pain after discharge of his defibrillator this morning). Denies: Shortness of Breath, Wheezing, Pleuritic Chest Pain, Cough, Sputum Cardiovascular: Reports: Chest Pain (Diffuse chest wall discomfort.). Denies: Blood Pressure Problem, Claudication, Dyspnea on Exertion, Lightheadedness, Orthopnea, Palpitations, PND, Syncope, Other Endocrine: Reports: No Symptoms GI/Abdominal: Reports: No Symptoms, Other (He has never been told that he has situs inversus.) : Reports: No Symptoms Musculoskeletal: Reports: No Symptoms Skin: Reports: No Symptoms Neurological: Reports: No Symptoms Psychiatric: Reports: No Symptoms Hematologic/Lymphatic: Reports: No Symptoms Immunologic: Reports: No Symptoms ED EXAM, GENERAL - Physical Exam Exam: See Below Exam Limited By: No Limitations General Appearance: Alert, WD/WN, Mild Distress Eye Exam: Bilateral Eye: Normal Inspection Throat/Mouth: Normal Inspection, Normal Lips, Normal Teeth, Normal Voice Head: Atraumatic, Normocephalic Neck: Normal Inspection, Supple, Non-Tender, Full Range of Motion. No: Carotid Bruit, Lymphadenopathy (L), Lymphadenopathy (R) Respiratory/Chest: No Respiratory Distress, Lungs Clear, Normal Breath Sounds, No Accessory Muscle Use, Other (Diffuse anterior chest wall tenderness on examination in the pectoralis major and minor. Pacemaker defibrillator left upper anterior chest) Cardiovascular: Normal Peripheral Pulses ( muscles as well as the ribs.), Regular Rate, Rhythm, No Edema, No Gallop, No JVD, No Rub, Systolic Murmur (And systolic ejection murmur and I believe an early diastolic murmur as well best heard at the left lower sternal border.), Other (Well-healed midline sternotomy incision) Peripheral Pulses: 2+: Posterior Tibial (L), Posterior Tibial (R), Dorsalis Pedis (L), Dorsalis Pedis (R), 3+: Carotid (L), Carotid (R) GI/Abdominal: Normal Bowel Sounds, Soft, Non-Tender, No Organomegaly, No Distention Back Exam: Normal Inspection, Full Range of Motion Extremities: Normal Inspection, Normal Range of Motion, Non-Tender, No Pedal Edema, Normal Capillary Refill Neurological: Alert, Oriented, CN II-XII Intact, Normal Cognition Psychiatric: Anxious Skin Exam: Warm, Dry, Intact, Normal Color, No Rash #1 Interpretation EKG Date: 08/10/21 Time: 10:33 Rhythm: Other (Atrial sensed ventricular paced rhythm at 71/min.) Rate (Beats/Min): 71 Proctor: Normal P-Wave: Present QRS: Wide EKG Interpretation Comments: No further analysis attempted due to paced rhythm. The pacemaker is functioning 100% of the time. Course - Vital Signs Last Recorded V/S: Last Vital Signs Temp Pulse 79 08/10/21 10:30 Resp 16 08/10/21 10:30 BP 148/78 H 08/10/21 10:30 Pulse Ox 97 08/10/21 10:30 - Orders/Labs/Meds Labs: Laboratory Tests 08/10/21 08/10/21 08/10/21 Range/Units 10:40 10:40 10:40 WBC 3.90 L (4.23-9.07) K/mm3 RBC 5.27 (4.63-6.08) M/mm3 Hgb 15.8 (13.7-17.5) gm/dl Hct 47.5 (40.1-51.0) % MCV 90.1 (79.0-92.2) fl MCH 30.0 (25.7-32.2) pg MCHC 33.3 (32.2-35.5) g/dl RDW Std Deviation 42.4 (35.1-43.9) fL Plt Count 145 L (163-337) K/mm3 MPV 10.4 (9.4-12.3) fl Neut % (Auto) 52.1 (34.0-67.9) % Lymph % (Auto) 27.9 (21.8-53.1) % Floyd % (Auto) 19.2 H (5.3-12.2) % Eos % (Auto) 0.5 L (0.8-7.0) Baso % (Auto) 0.3 (0.1-1.2) % Neut # (Auto) 2.03 (1.78-5.38) K/mm3 Lymph # (Auto) 1.09 L (1.32-3.57) K/mm3 Floyd # (Auto) 0.75 (0.30-0.82) K/mm3 Eos # (Auto) 0.02 L (0.04-0.54) K/mm3 Baso # (Auto) 0.01 (0.01-0.08) K/mm3 Sodium 138 (136-145) mEq/L Potassium 4.2 (3.5-5.1) mEq/L Chloride 100 (98-107) mEq/L Carbon Dioxide 29 (21-32) mEq/L Anion Gap 13.2 (5-15) BUN 12 (7-18) mg/dL Creatinine 0.8 (0.7-1.3) mg/dL Est Cr Clr Drug Dosing TNP Estimated GFR (MDRD) > 60 (>60) mL/min BUN/Creatinine Ratio 15.0 (14-18) Glucose 107 H (70-99) mg/dL Calcium 8.7 (8.5-10.1) mg/dL Magnesium 1.8 (1.8-2.4) mg/dL Total Bilirubin 1.5 H (0.2-1.0) mg/dL AST 26 (15-37) U/L ALT 37 (16-63) U/L Alkaline Phosphatase 57 (46-116) U/L Creatine Kinase 144 (39-308) U/L CK-MB (CK-2) 1.4 (0-3.6) ng/ml Troponin I < 0.017 (0.00-0.056) ng/mL NT-Pro-B Natriuret Pep 1694 H (0-125) pg/mL Total Protein 7.8 (6.4-8.2) g/dl Albumin 4.2 (3.4-5.0) g/dl Globulin 3.6 gm/dL Albumin/Globulin Ratio 1.2 (1-2) Digoxin < 0.2 L (0.9-2.0) ng/mL - Radiology Interpretation Free Text/Narrative:: 25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 However the magnet caused his pacemaker defibrillator to discharge giving the patient intense diffuse chest wall pain. He never blacked out. He did not fall to the ground. He states he remained standing after the defibrillator shocked him. At present the pacemaker component of the defibrillator pacemaker appears to be functioning normally and he is 100% paced with atrial sensed ventricular pacemaker at 71 bpm. The plan will be to interrogate his pacemaker. Routine labs will be obtained and a chest x-ray. He states his chest wall pain is slowly easing up. Does not want anything for pain at this time - Re-Assessments/Exams Free Text/Narrative Re-Assessment/Exam: 08/10/21 11:36 chest x-ray done portably reveals marked cardiomegaly with dextrocardia. Patient has right-sided epicardial pacemaker leads in place. Visualized lungs are clear. [employer] called back and indicated that the pacemaker is functioning normally as preset. She indicates of the magnet was placed on his chest he had actually will not allow any beats to be evaluated and therefore they would not be able to tell if the pacemaker had indeed fired but it per patient's report it certainly did fire. 08/10/21 11:58 Labs reveal a slightly low white count at 3.90 with auto differential revealing 52% neutrophils. Monocytes are elevated at 19.2. Hemoglobin is 15.8 with hematocrit of 47.5 MCV is normal at 90.1. Chemistry reveals a normal sodium at 138 potassium of 4.2. Chloride 100 with a bicarb of 29. Anion gap is 13.2. BUN is 12 with a creatinine of 0.8 and a GFR greater than 60. Glucose of 107. Calcium 8.7. Magnesium 1.8. Total bilirubin slightly elevated 1.5 with an AST of 26 and an ALT of 37. Alkaline phosphatase is normal at 57. Therefore elevated bilirubin appears to be secondary to Gilbert's syndrome. Total CPK is 144 with a CK-MB fraction of 1.4 and a troponin I less than 0.017. BNP is mildly elevated at 1694. Total protein is 7.8 with an albumin fraction of 4.2. Digoxin is less than 0.2--question whether he is actually taking digoxin anymore. 08/10/21 12:10: I have discussed the findings with the patient and his boss whom is in the room. Reassured that his pacemaker defibrillator is functioning normally at this time. He will be discharged to home off work the rest of the day because of chest wall discomfort. Tentatively he will return to work in full capacity tomorrow without restrictions. He is to expect chest wall discomfort for 2 to 3 days Departure - Departure Time of Disposition: 12:08 Disposition: Home, Self-Care 01 Condition: Fair Clinical Impression: Implantable cardioverter-defibrillator (ICD) discharge, Acute chest wall pain Instructions: Chest Wall Pain, [id number] Referrals: Mariano Oro MD [Primary Care Provider] - Forms: ED Department Discharge, ED Return to Work/School Form Additional Instructions: Evaluation in the emergency room this morning in regards to a magnet placed adjacent to your chest which turned off your defibrillator pacemaker transiently causing it to discharge we believe 2 times. On interrogation of the pacemaker it is functioning normally with a paced rhythm at approximately 71 bpm. Because the pacemaker defibrillator was turned off by the magnet when it was placed at adjacent to the your chest there is no recording that the defibrillator discharged x2 as you are well aware that it did. At this time the pacemaker defibrillator is functioning normally. Battery power is still very good. Lab work was all within normal limits showing no obvious abnormalities or elevation of the serum troponin etc. Suggest off work today due to chest wall discomfort. May use Tylenol or Motrin for chest discomfort if needed. Tentatively may return to work tomorrow without any restrictions although you may have some issues with pulling and pushing heavy objects for a couple of days. Sepsis Event Note (ED) - Focused Exam Vital Signs: Vital Signs Pulse Resp BP Pulse Ox 08/10/21 10:30 79 16 148/78 H 97
--- NOTE | 2021-08-10 11:52 | CR ---
EXAM: XR CHEST 1 VIEW LOCATION: [facility] [employer] DATE/TIME: 08/10/2021 10:29 AM INDICATION: Defibrillator discharged this am about 45 mins prior to arrival. has known dextrocardia. COMPARISON: None. IMPRESSION: Cardiac enlargement with right-sided epicardial pacemaker leads. Normal pulmonary vascularity. No pneumothorax, pleural effusion or focal consolidation. SIGNED BY: Savage Crump MD 08/10/2021 12:42 PM DANNY
[2021-08-10 15:38] VITALS: BP 146/76; PULSE 78
== END 2021-08-10 12:25 | disposition home or self-care (01) ==
LOC: JD.ED 10:08
DX: T82.199A Other mechanical complication of unspecified cardiac device, initial encounter (principal); I10 Essential (primary) hypertension; I25.2 Old myocardial infarction; Z79.82 Long term (current) use of aspirin; Z88.1 Allergy status to other antibiotic agents; Z88.6 Allergy status to analgesic agent; Z79.899 Other long term (current) drug therapy
CPT/HCPCS: 36415; 71045; 71045-26; 80053; 80162; 82550; 82553; 83735; 83880; 84484; 85025; 93005; 99285-25

== ENCOUNTER 2021-11-03 15:41 | Emergency (ER) | payer BC ==
[2021-11-03] MEDS ORDERED: Sodium Chloride 0.9% 10 ML Syringe FLUSH PRN (16:00)
[2021-11-03 16:23] VITALS: BP 124/62; PULSE 61
[2021-11-03] MEDS ORDERED: Furosemide 40 MG/4 ML VIAL IVPUSH ONE (17:47)
== END 2021-11-03 19:15 | disposition home or self-care (01) ==
LOC: JD.ED 15:41
DX: R07.89 Other chest pain (principal); I10 Essential (primary) hypertension; I25.2 Old myocardial infarction; Z95.0 Presence of cardiac pacemaker; Z88.1 Allergy status to other antibiotic agents; Z88.8 Allergy status to other drugs, medicaments and biological substances; Z79.82 Long term (current) use of aspirin; Z86.16 Personal history of COVID-19
CPT/HCPCS: 36415; 71045; 80053; 83735; 83880; 84484; 85025; 85610; 85730; 93005; 96374; 99285; J1940; 93010; J3490

== ENCOUNTER 2022-10-11 11:30 | Emergency (ER) | payer BC, OTHER ==
[2022-10-11 11:52] VITALS: BP 142/70; PULSE 60
[2022-10-11] MEDS ORDERED: Sodium Chloride 0.9% 1,000 ML IV ONE (12:12)
[2022-10-11] MEDS ORDERED: HYDROmorphone 0.5 MG/0.5 ML Syringe IVPUSH ONE (12:12)
[2022-10-11] MEDS ORDERED: Iopamidol 612 MG/ML 100 ML Bottle IVPUSH ONE (12:25)
[2022-10-11] MEDS ORDERED: Iopamidol 612 MG/ML 50 ML SDV IVPUSH ONE (12:25)
[2022-10-11] MEDS: Sodium Chloride 0.9% 10 ML Syringe FLUSH PRN ×2 (12:56→13:01)
[2022-10-11] MEDS ORDERED: HYDROmorphone 1 MG/ML Syringe ONE (12:59)
[2022-10-11] MEDS ORDERED: HYDROmorphone 1 MG/ML Syringe IVPUSH ONE (13:03)
[2022-10-11 13:09] LABS: ESTIMATED GFR 131 mL/min (>60)
[2022-10-11] MEDS ORDERED: Orphenadrine 100 MG Tab.ER PO ONE (14:06)
[2022-10-11] MEDS ORDERED: Ketorolac 30 MG/ML SDV IVPUSH ONE (14:06)
== END 2022-10-11 14:31 | disposition home or self-care (01) ==
LOC: JD.ED 11:30
DX: S39.011A Strain of muscle, fascia and tendon of abdomen, initial encounter (principal); I10 Essential (primary) hypertension; I25.2 Old myocardial infarction; Z88.1 Allergy status to other antibiotic agents; Z88.6 Allergy status to analgesic agent; Z79.82 Long term (current) use of aspirin; Z79.899 Other long term (current) drug therapy; Z86.16 Personal history of COVID-19
CPT/HCPCS: 36415; 74177; 80053; 81003; 85025; 86140; 96361; 96374; 96375; 99284; A9270; J1170; J1885; J3490; J7030; Q9967

== ENCOUNTER 2022-10-16 10:50 | Emergency (ER) | payer BC ==
[2022-10-16] MEDS ORDERED: Sodium Chloride 0.9% 10 ML Syringe FLUSH PRN (12:10)
[2022-10-16] MEDS ORDERED: Iopamidol 755 Mg/ML 100 ML Bottle IVPUSH ONE (12:10)
[2022-10-16] MEDS ORDERED: Sodium Chloride 0.9% 100 ML IV SCH (12:15)
[2022-10-16 12:21] LABS: ESTIMATED GFR 121 mL/min (>60)
[2022-10-16] MEDS ORDERED: Aspirin 81 MG Tab.Chew PO STA (14:07)
[2022-10-16] MEDS ORDERED: Ibuprofen 400 MG Tab PO ONE (21:12)
[2022-10-17] MEDS ORDERED: Sodium Chloride 0.9% 1,000 ML IV ONE (05:10)
[2022-10-17 06:37] VITALS: BP 97/45; PULSE 51
== END 2022-10-17 08:15 ==
LOC: JD.ED 10:50
DX: I63.512 Cerebral infarction due to unspecified occlusion or stenosis of left middle cerebral artery (principal); I10 Essential (primary) hypertension; Z88.1 Allergy status to other antibiotic agents; Z88.6 Allergy status to analgesic agent; Z79.82 Long term (current) use of aspirin; Z79.899 Other long term (current) drug therapy; Z86.16 Personal history of COVID-19
CPT/HCPCS: 36415; 70450; 70496; 70498; 72125; 80053; 82947; 85025; 85610; 85730; 93005; 96360; 96361; 99285; A9270; J3490; J7030; Q9967; 93010

== ENCOUNTER 2023-04-04 17:06 | Emergency (ER) | payer BC ==
[2023-04-04] MEDS ORDERED: Sodium Chloride 0.9% 10 ML Syringe FLUSH PRN (17:42)
[2023-04-04 18:05] LABS: BASOPHILS PERCENT AUTO 0.2 % (0.0-1.0); EOSINOPHILS ABSOLUTE AUTO 0.1 K/mm3 (0.0-0.4); EOSINOPHILS PERCENT AUTO 1.7 % (0.0-6.0); HEMATOCRIT 48.2 % (42.0-52.0); HEMOGLOBIN 16.2 gm/dl (14.0-18.0); IMMATURE GRAN ABSOLUTE AUTO 0.02 K/mm3 (0.00-0.05); IMMATURE GRAN PERCENT AUTO 0.3 % (0.0-0.4); LYMPHOCYTES ABSOLUTE AUTO 1.1 K/mm3 (1.0-4.8); LYMPHOCYTES PERCENT AUTO 17.4 % (24.0-44.0); MEAN CORPUSCULAR HEMOGLOBIN 30.3 pg (28.0-32.0); MEAN CORPUSCULAR HGB CONC 33.6 g/dl (32.0-36.0); MEAN CORPUSCULAR VOLUME 90.1 fl (83.0-99.0); MEAN PLATELET VOLUME 10.5 fl (9.4-12.4); MONOCYTES ABSOLUTE AUTO 0.5 K/mm3 (0.0-0.8); MONOCYTES PERCENT AUTO 7.6 % (0.0-8.0); NEUTROPHILS ABSOLUTE AUTO 4.4 K/mm3 (1.8-7.7); NEUTROPHILS PERCENT AUTO 72.8 % (41.0-71.0); PLATELET COUNT,PLT 148 K/mm3 (150-400); RED BLOOD CELL COUNT 5.35 M/mm3 (4.52-5.90); WHITE BLOOD CELL COUNT,WBC 6.05 K/mm3 (3.9-11.3)
[2023-04-04 18:24] LABS: A/G RATIO 1.3 (1-2); ALANINE AMINOTRANSFERASE,ALT 33 U/L (16-63); ALKALINE PHOSPHATASE 56 U/L (46-116); ASPARTATE AMNIOTRANSFERASE,AST 20 U/L (15-37); BILIRUBIN TOTAL 2.3 mg/dL (0.2-1.0); BLOOD UREA NITROGEN,BUN 14 mg/dL (7-18); BUN/CREATININE RATIO 12.7 (14-18); C-REACTIVE PROTEIN <0.2 mg/dL (<1.0); CALCIUM 8.9 mg/dL (8.5-10.1); CARBON DIOXIDE,CO2 27 mEq/L (21-32); CHLORIDE,CL 103 mEq/L (98-107); CREATININE 1.1 mg/dL (0.7-1.3); EST CRCL DRUG DOSING (CG) 121.63 mL/min; ESTIMATED GFR 95 mL/min (>60); GLUCOSE RANDOM 113 mg/dL (70-99); PROTEIN TOTAL,TP 7.2 g/dl (6.4-8.2); SODIUM,NA 138 mEq/L (136-145)
[2023-04-04 19:05] LABS: APPEARANCE,URINE CLEAR (Clear); BILIRUBIN,URINE NEGATIVE (Negative); COLOR,URINE YELLOW (Yellow); GLUCOSE,URINE 2+ (Negative); KETONES,URINE NEGATIVE (Negative); LEUKOCYTE ESTERASE,URINE NEGATIVE (Negative); NITRITE,URINE NEGATIVE (Negative); OCCULT BLOOD,URINE NEGATIVE (Negative); PH,URINE 6.5 (5.0-8.0); PROTEIN,URINE NEGATIVE (Negative); UROBILINOGEN,URINE 0.2 (0.2-1.0)
[2023-04-04 19:40] LABS: BACTERIA,URINE FEW /hpf (FEW); MUCUS,URINE FEW /hpf (FEW); RBC,URINE 0-5 /hpf (0-5); SQUAMOUS EPITHELIAL CELLS,UR 0-5 /hpf (0-5); WBC,URINE 0-5 /hpf (0-5)
[2023-04-04 20:59] VITALS: BP 119/60; PULSE 61
== END 2023-04-04 20:15 | disposition home or self-care (01) ==
LOC: JD.ED 17:06
DX: R07.81 Pleurodynia (principal); R04.2 Hemoptysis; I10 Essential (primary) hypertension; Z86.73 Personal history of transient ischemic attack (TIA), and cerebral infarction without residual deficits; Z87.448 Personal history of other diseases of urinary system; Z86.16 Personal history of COVID-19; Z20.822 Contact with and (suspected) exposure to COVID-19; Z88.6 Allergy status to analgesic agent; Z88.1 Allergy status to other antibiotic agents; Z79.01 Long term (current) use of anticoagulants; Z79.899 Other long term (current) drug therapy
CPT/HCPCS: 36415; 71046; 74176; 80053; 81001; 84484; 85025; 85379; 86140; 87635; 93005; 99285; J3490; U0002

== ENCOUNTER 2024-06-23 14:48 | Emergency (ER) | payer BC, OTHER ==
[2024-06-23 17:10] LABS: BASOPHILS PERCENT AUTO 0.4 % (0.0-1.0); EOSINOPHILS ABSOLUTE AUTO 0.2 K/mm3 (0.0-0.4); EOSINOPHILS PERCENT AUTO 1.9 % (0.0-6.0); HEMATOCRIT 47.3 % (42.0-52.0); HEMOGLOBIN 16.4 gm/dl (14.0-18.0); IMMATURE GRAN ABSOLUTE AUTO 0.01 K/mm3 (0.00-0.05); IMMATURE GRAN PERCENT AUTO 0.1 % (0.0-0.4); LYMPHOCYTES ABSOLUTE AUTO 1.9 K/mm3 (1.0-4.8); MEAN CORPUSCULAR HEMOGLOBIN 30.9 pg (28.0-32.0); MEAN CORPUSCULAR HGB CONC 34.7 g/dl (32.0-36.0); MEAN CORPUSCULAR VOLUME 89.2 fl (83.0-99.0); MEAN PLATELET VOLUME 10.9 fl (9.4-12.4); MONOCYTES ABSOLUTE AUTO 0.6 K/mm3 (0.0-0.8); MONOCYTES PERCENT AUTO 7.3 % (0.0-8.0); NEUTROPHILS ABSOLUTE AUTO 5.4 K/mm3 (1.8-7.7); NEUTROPHILS PERCENT AUTO 67.3 % (41.0-71.0); PLATELET COUNT,PLT 197 K/mm3 (150-400); WHITE BLOOD CELL COUNT,WBC 8.06 K/mm3 (3.9-11.3)
[2024-06-23 17:37] LABS: A/G RATIO 1.2 (1-2); ALBUMIN 4.2 g/dl (3.4-5.0); ANION GAP 14.6 (5-15); BUN/CREATININE RATIO 12.2 (14-18); CALCIUM 9.8 mg/dL (8.5-10.1); CREATININE 0.9 mg/dL (0.7-1.3); EST CRCL DRUG DOSING (CG) 147.35 mL/min; POTASSIUM,K 4.6 mEq/L (3.5-5.1); PROTEIN TOTAL,TP 7.6 g/dl (6.4-8.2)
[2024-06-23 20:29] VITALS: BP 116/67; PULSE 68
== END 2024-06-23 20:20 | disposition home or self-care (01) ==
LOC: JD.ED 14:48
DX: R06.02 Shortness of breath (principal); I10 Essential (primary) hypertension; Z88.1 Allergy status to other antibiotic agents; Z79.899 Other long term (current) drug therapy; Z86.16 Personal history of COVID-19; Z87.891 Personal history of nicotine dependence
CPT/HCPCS: 36415; 80053; 83880; 84484; 85025; 85379; 93005; 99285

== ENCOUNTER 2024-06-26 17:45 | Emergency (ER) | payer BC ==
[2024-06-26] MEDS ORDERED: Sodium Chloride 0.9% 10 ML Syringe FLUSH PRN (18:11)
[2024-06-26] MEDS: Aspirin 81 MG Tab.Chew PO ONE (18:27)
[2024-06-26 18:35] LABS: BASOPHILS PERCENT AUTO 0.4 % (0.0-1.0); EOSINOPHILS ABSOLUTE AUTO 0.2 K/mm3 (0.0-0.4); EOSINOPHILS PERCENT AUTO 2.8 % (0.0-6.0); HEMATOCRIT 44.1 % (42.0-52.0); HEMOGLOBIN 15.2 gm/dl (14.0-18.0); IMMATURE GRAN ABSOLUTE AUTO 0.01 K/mm3 (0.00-0.05); IMMATURE GRAN PERCENT AUTO 0.1 % (0.0-0.4); LYMPHOCYTES ABSOLUTE AUTO 2.1 K/mm3 (1.0-4.8); MEAN CORPUSCULAR HEMOGLOBIN 30.6 pg (28.0-32.0); MEAN CORPUSCULAR HGB CONC 34.5 g/dl (32.0-36.0); MEAN CORPUSCULAR VOLUME 88.9 fl (83.0-99.0); MEAN PLATELET VOLUME 10.2 fl (9.4-12.4); MONOCYTES ABSOLUTE AUTO 0.6 K/mm3 (0.0-0.8); MONOCYTES PERCENT AUTO 8.6 % (0.0-8.0); NEUTROPHILS ABSOLUTE AUTO 4.1 K/mm3 (1.8-7.7); NEUTROPHILS PERCENT AUTO 58.1 % (41.0-71.0); PLATELET COUNT,PLT 172 K/mm3 (150-400); RED BLOOD CELL COUNT 4.96 M/mm3 (4.52-5.90); WHITE BLOOD CELL COUNT,WBC 7.09 K/mm3 (3.9-11.3)
[2024-06-26 19:01] LABS: A/G RATIO 1.4 (1-2); ALBUMIN 4.2 g/dl (3.4-5.0); BILIRUBIN TOTAL 2.3 mg/dL (0.2-1.0); BUN/CREATININE RATIO 11.1 (14-18); CALCIUM 8.8 mg/dL (8.5-10.1); CREATININE 0.9 mg/dL (0.7-1.3); EST CRCL DRUG DOSING (CG) 147.35 mL/min; MAGNESIUM 2.1 mg/dL (1.8-2.4); PROTEIN TOTAL,TP 7.3 g/dl (6.4-8.2)
[2024-06-26 21:32] VITALS: BP 131/81; PULSE 62
== END 2024-06-26 21:44 | disposition home or self-care (01) ==
LOC: JD.ED 17:45
DX: R07.9 Chest pain, unspecified (principal); Z45.010 Encounter for checking and testing of cardiac pacemaker pulse generator [battery]; I10 Essential (primary) hypertension; Z86.16 Personal history of COVID-19; Z79.899 Other long term (current) drug therapy; Z88.1 Allergy status to other antibiotic agents
CPT/HCPCS: 36415; 71045; 80053; 83735; 84484; 85025; 93005; 99285; A9270

== ENCOUNTER 2024-12-17 19:31 | Emergency (ER) | payer BC ==
[2024-12-17] MEDS ORDERED: Sodium Chloride 0.9% 10 ML Syringe FLUSH PRN (20:15)
[2024-12-17 20:59] LABS: BASOPHILS PERCENT AUTO 0.5 % (0.0-1.0); EOSINOPHILS ABSOLUTE AUTO 0.2 K/mm3 (0.0-0.4); EOSINOPHILS PERCENT AUTO 2.1 % (0.0-6.0); HEMATOCRIT 42.3 % (42.0-52.0); HEMOGLOBIN 13.9 gm/dl (14.0-18.0); IMMATURE GRAN ABSOLUTE AUTO 0.02 K/mm3 (0.00-0.05); IMMATURE GRAN PERCENT AUTO 0.2 % (0.0-0.4); LYMPHOCYTES ABSOLUTE AUTO 2.7 K/mm3 (1.0-4.8); LYMPHOCYTES PERCENT AUTO 32.3 % (24.0-44.0); MEAN CORPUSCULAR HGB CONC 32.9 g/dl (32.0-36.0); MEAN CORPUSCULAR VOLUME 91.4 fl (83.0-99.0); MEAN PLATELET VOLUME 10.5 fl (9.4-12.4); MONOCYTES ABSOLUTE AUTO 0.7 K/mm3 (0.0-0.8); MONOCYTES PERCENT AUTO 8.4 % (0.0-8.0); NEUTROPHILS ABSOLUTE AUTO 4.7 K/mm3 (1.8-7.7); NEUTROPHILS PERCENT AUTO 56.5 % (41.0-71.0); PLATELET COUNT,PLT 157 K/mm3 (150-400); RED BLOOD CELL COUNT 4.63 M/mm3 (4.52-5.90); WHITE BLOOD CELL COUNT,WBC 8.23 K/mm3 (3.9-11.3)
[2024-12-17 21:29] LABS: A/G RATIO 1.3 (1-2); ALBUMIN 3.9 g/dl (3.4-5.0); ANION GAP 10.8 (5-15); BILIRUBIN TOTAL 1.1 mg/dL (0.2-1.0); BUN/CREATININE RATIO 15.5 (14-18); CALCIUM 8.7 mg/dL (8.5-10.1); CREATININE 1.1 mg/dL (0.7-1.3); EST CRCL DRUG DOSING (CG) 119.49 mL/min; MAGNESIUM 1.9 mg/dL (1.8-2.4); POTASSIUM,K 3.8 mEq/L (3.5-5.1); PROTEIN TOTAL,TP 6.8 g/dl (6.4-8.2)
[2024-12-17 22:47] VITALS: BP 137/55; PULSE 78
== END 2024-12-17 22:45 | disposition home or self-care (01) ==
LOC: JD.ED 19:31
DX: Z45.018 Encounter for adjustment and management of other part of cardiac pacemaker (principal); I10 Essential (primary) hypertension; Z88.1 Allergy status to other antibiotic agents; Z79.899 Other long term (current) drug therapy; Z86.16 Personal history of COVID-19; Z95.810 Presence of automatic (implantable) cardiac defibrillator; Z86.73 Personal history of transient ischemic attack (TIA), and cerebral infarction without residual deficits; Z79.01 Long term (current) use of anticoagulants
CPT/HCPCS: 36415; 71045; 71045-26; 80053; 83735; 84484; 85025; 93005; 93010; 99283; 99284